=== PATIENT | female | born 1995 | race Caucasian/White ===

== ENCOUNTER 2017-07-24 07:03 | Inpatient (IN) | payer OTHER ==
[~2017-07-24 07:03] MED LIST: Buffered Lidocaine 0.9% SYRIN* 5 ML/SYR SYRINGE INTRADERM ONE
[2017-07-24] MEDS ORDERED: Sodium Citrate/Citric Acid* 15 ML UDC PO ONE (07:30)
[2017-07-24] MEDS ORDERED: Phenylephrine IV* 40 MCG/ML 10 ML SYRINGE ONE (08:07)
[2017-07-24] MEDS ORDERED: ceFOXitin 2 GM IVPREMIX* 2 GM/50 ML BAG ONE (08:14)
[2017-07-24] MEDS ORDERED: OXYTOCIN* 10 UNITS/ML 1 ML VIAL ONE (09:55)
[2017-07-24] MEDS ORDERED: Morphine PF AMP (0.5MG/ML)* 5 MG/10 ML AMP ONE (09:55)
[2017-07-24] MEDS ORDERED: Dexamethasone IV* 4 MG/ML 1 ML (4 MG) ONE (09:55)
[2017-07-24] MEDS ORDERED: Ondansetron INJ* 2 MG/ML VIAL ONE (09:55)
[2017-07-24] MEDS ORDERED: oxyCODONE TAB* 5 MG TAB PO PRN ×2 (10:35→10:37)
[2017-07-24] MEDS ORDERED: Naloxone* 0.4 MG/ML 1 ML VIAL IV PRN ×2 (10:35→10:37)
[2017-07-24] MEDS ORDERED: Nalbuphine* 20 MG/ML 1 ML VIAL IV PRN ×2 (10:35→10:37)
[2017-07-24] MEDS ORDERED: Acetaminophen IV 1GM/100ML * 1,000 MG/100 ML VIAL IVPB ONE (10:35)
[2017-07-24] MEDS ORDERED: Ketorolac INJ* 30 MG/ML 1 ML VIAL IV PRN (10:35)
[2017-07-24] MEDS ORDERED: fentaNYL* 50 MCG/ML 2 ML VIAL (100 MCG VIAL) IV PRN (10:35)
[2017-07-24] MEDS ORDERED: PROCHLORPERAZINE INJ 5 MG/ML 2 ML VIAL IV PRN ×2 (10:35→10:37)
[2017-07-24] MEDS ORDERED: Scopolamine PATCH Remove* 1 NOTE MISC PATCH OFF PRN (10:37)
[2017-07-24] MEDS ORDERED: Ondansetron INJ* 2 MG/ML VIAL IV PRN (10:37)
[2017-07-24] MEDS ORDERED: Scopolamine 1.5 mg* PATCH TRANSDERM PRN (10:37)
[2017-07-24] MEDS ORDERED: Glycerin ADULT SUPP PR PRN (11:05)
[2017-07-24] MEDS ORDERED: Dibucaine 1% 28.35 GM TUBE PR PRN (11:05)
[2017-07-24] MEDS ORDERED: Witch Hazel PAD* JAR TOPICAL PRN (11:05)
[2017-07-24] MEDS ORDERED: Oxytocin in LR* 20 UNITS/1,000 ML BAG IVPB SCH (12:00)
[2017-07-24] MEDS: Simethicone TAB* 80 MG TAB.CHEW PO SCH ×3 (14:48→21:36)
[2017-07-24] MEDS: Docusate CAP* 100 MG PO SCH ×2 (14:48→21:36)
[2017-07-24] MEDS: Ketorolac INJ* 30 MG/ML 1 ML VIAL IV PRN (19:45)
[2017-07-24] MEDS: Acetaminophen TAB* 325 MG PO SCH ×2 (21:28→21:36)
[2017-07-25] MEDS: Ketorolac INJ* 30 MG/ML 1 ML VIAL IV PRN ×2 (01:50→08:25)
--- NOTE | 2017-07-25 02:15 | OP ---
OPERATIVE REPORT: DATE OF OPERATION: 07/24/17 DATE OF : 89 SURGEON: Anselmo Fuller MD SEEING EYE DOG TEACHER: Adelaide Cooper CNM PRE-OP DIAGNOSIS: Failed version.breech presenting/ 39 weeks POST-OP DIAGNOSIS: Failed version./ breech presentation. 39 weeks OPERATIVE PROCEDURE: Low-transverse section. INDICATIONS: This is a 22-year-old 2, para 1 with 2 attempts at version , one approximately a week ago and one the day of surgery, both of which were failed attempts. Baby tolerated well and had a reactive NST afterwards. FINDINGS: Include a viable female with Apgars 9 and 9 and weight was 6 pounds 5 ounces. Normal-appearing uterus, fallopian tubes, and ovaries. ESTIMATED BLOOD LOSS: 600 cc. DESCRIPTION OF PROCEDURE: The patient identified and procedure identified as a low- transverse section. The patient was taken to the operating room and prepped and draped in the usual fashion in the left lateral recumbent position under spinal anesthesia. A Pfannenstiel incision was made in the abdomen and carried down through fat, fascia, and peritoneum. A transverse incision was made in the lower uterine segment and extended laterally using blunt dissection. The above was delivered through the incision using the breech extraction method without difficulty. Cord was doubly clamped and cut and handed to the awaiting director channel. Cord blood was obtained. Placenta was delivered spontaneously. The uterus was wiped out with a wet lap sponge. No abnormalities were seen on the uterus. The uterus was then closed using 0 Polysorb in a running fashion. Second layer was used to imbricate the first layer. Good hemostasis was verified and good hemostasis achieved with 0 and 3-0 Polysorb [id number] sutures. The uterus was placed back in the abdominal cavity. The gutters were wiped out with a wet lap sponge. The peritoneum was then closed using 3-0 Polysorb in a running fashion. Good hemostasis achieved in the subrectus layers. The fascia was closed using 0 Polysorb in a running fashion. Copious irrigation was utilized and suctioned out and the skin was closed with 4-0 Monocryl in a subcuticular fashion. All sponge and instrument counts were correct and the patient returned to the recovery room in stable condition. [id number]/[facility] #: [id number] [facility]
[2017-07-25] MEDS: Acetaminophen TAB* 325 MG PO SCH (04:41)
[2017-07-25] MEDS: oxyCODONE/Acetamin 5/325 MG* TAB PO PRN ×5 (04:42→21:26)
[2017-07-25 06:49] LABS: ABS Basophils 0 10^3/ul (0-0.2); ABS Eosinophils 0 10^3/ul (0-0.6); ABS Lymphocytes 3.1 10^3/ul (1.0-4.8); ABS Monocytes 1.3 10^3/ul (0-0.8); ABS Neutrophils 14.8 10^3/ul (1.5-7.7); ABS Nucleated RBC 0 10^3/ul; Eosinophil % 0.2 % (0-6); Hematocrit 26 % (35-47); Hemoglobin 8.9 g/dl (12.0-16.0); Lymphocyte % 16.1 % (25-47); Mean Corpuscular HGB Conc 34 g/dl (31-36); Mean Corpuscular Hemoglobin 32 pg (27-31); Mean Corpuscular Volume 92 fL (80-97); Mean Platelet Volume 11 um3 (7.4-10.4); Nucleated Red Blood Cells % 0; Platelet Count 97 10^3/ul (150-450); Red Blood Count 2.82 10^6/ul (4.0-5.4); Red Cell Distribution Width 14 % (10.5-15); White Blood Count 19.3 10^3/ul (3.5-10.8)
[2017-07-25] MEDS ORDERED: RANITIDINE HCL 75 MG PO SCH (09:00)
[2017-07-25] MEDS: Docusate CAP* 100 MG PO SCH ×3 (09:07→21:25)
[2017-07-25] MEDS: Simethicone TAB* 80 MG TAB.CHEW PO SCH ×4 (09:09→21:26)
[2017-07-25] MEDS: Ferrous Gluconate TAB* 324 MG TAB PO SCH ×2 (09:09→21:26)
[2017-07-25] MEDS ORDERED: Acetaminophen TAB* 325 MG PO PRN (11:00)
[2017-07-25] MEDS: Ibuprofen TAB* 600 MG PO PRN ×2 (13:44→21:26)
[2017-07-25] MEDS ORDERED: Zolpidem TAB* 5 MG PO PRN (21:00)
[2017-07-25] MEDS ORDERED: Nicotine Inhaler* 10 MG AMP INH PRN (23:18)
[2017-07-25] MEDS ORDERED: Mouth Piece, Nicotine* 1 EACH CARTRIDGE INH PRN (23:19)
[2017-07-26] MEDS: oxyCODONE/Acetamin 5/325 MG* TAB PO PRN ×4 (01:16→19:54)
[2017-07-26] MEDS: Ibuprofen TAB* 600 MG PO PRN ×4 (03:26→20:59)
[2017-07-26] MEDS: Docusate CAP* 100 MG PO SCH ×3 (09:18→19:37)
[2017-07-26] MEDS: Ferrous Gluconate TAB* 324 MG TAB PO SCH ×2 (09:18→19:36)
[2017-07-26] MEDS: Simethicone TAB* 80 MG TAB.CHEW PO SCH ×3 (09:19→19:37)
[2017-07-27] MEDS: oxyCODONE/Acetamin 5/325 MG* TAB PO PRN ×2 (01:58→06:20)
[2017-07-27] MEDS: Ibuprofen TAB* 600 MG PO PRN (06:19)
[2017-07-27 07:42] VITALS: BP 110/78
[2017-07-27] MEDS: Ferrous Gluconate TAB* 324 MG TAB PO SCH (09:27)
[2017-07-27] MEDS: Docusate CAP* 100 MG PO SCH (09:27)
== END 2017-07-27 10:30 | disposition home or self-care (01) | DRG 540 ==
LOC: MCHOB 07:03
PROVIDERS: ADMIT Obstetrics & Gynecology; ATTEND Obstetrics & Gynecology
PROC: 10D00Z1 Extraction of Products of Conception, Low, Open Approach (ICD-10-PCS; principal; 2017-07-24 07:45)
DX: O32.1XX0 Maternal care for breech presentation, not applicable or unspecified (principal); D64.9 Anemia, unspecified; O99.334 Smoking (tobacco) complicating childbirth; F17.210 Nicotine dependence, cigarettes, uncomplicated; O90.81 Anemia of the puerperium; Z3A.39 39 weeks gestation of pregnancy; Z37.0 Single live birth
CPT/HCPCS: 36415; 59412; 85025; A9270-GY; J0694; J1100; J1885; J2405; J2590

== ENCOUNTER 2017-10-21 18:16 | Emergency (ER) | payer OTHER ==
[2017-10-21 18:39] VITALS: BP 115/59
--- NOTE | 2017-10-21 19:15 | UC ---
Complaint Female HPI - HPI Summary HPI Summary: 22 yo WF h/o pyelonephritis c/o recurrent pyelonephritis sx of right LBP, changes in urine color and foul smelling urine, denies f/c, started with dysuria 2 weeks ago - History Of Current Complaint Chief Complaint: UCGU Stated Complaint: BACK PAIN Time Seen by Provider: 10/21/17 18:58 Hx Obtained From: Patient Hx Last Menstrual Period: NOW Onset/Duration: Lasting Days Timing: Constant Severity Initially: Moderate Severity Currently: Moderate Pain Intensity: 3 - Allergies/Home Medications Allergies/Adverse Reactions: Allergies Allergy/AdvReac Type Severity Reaction Status Date / Time Penicillins Allergy Severe Hives Verified 10/21/17 18:40 Home Medications: Home Medications Acetaminophen TAB* [Tylenol TAB*] 650 mg PO PRN 10/21/17 [History] PMH/Surg Hx/FS Hx/Imm Hx - Additional Past Medical History Additional PMH: pyelonephritis Previously Healthy: Yes - Surgical History Surgical History: Yes Surgery Procedure, Year, and Place: - Social History Alcohol Use: None Substance Use Type: None Smoking Status (MU): Current Every Day Smoker Type: Cigarettes Amount Used/How Often: 6 CIG/DAY Length of Time of Smoking/Using Tobacco: 4 years Have You Smoked in the Last Year: Yes Household Exposure Type: Cigarettes - Immunization History Most Recent Influenza Vaccination: 03/2017 Most Recent Tetanus Shot: 03/21/15 Most Recent Pneumonia Vaccination: never Vaccination Up to Date: Yes Review of Systems Constitutional: Negative Skin: Negative Eyes: Negative ENT: Negative Respiratory: Negative Cardiovascular: Negative Gastrointestinal: Other - right LBP Genitourinary: Negative Motor: Negative Neurovascular: Negative Musculoskeletal: Negative Neurological: Negative Psychological: Negative Is Patient Immunocompromised?: Yes All Other Systems Reviewed And Are Negative: Yes Physical Exam Triage Information Reviewed: Yes Appearance: No Pain Distress Vital Signs: Initial Vital Signs Temp 37.3 C 10/21/17 18:33 Pulse 91 10/21/17 18:33 Resp 16 10/21/17 18:33 BP 115/59 10/21/17 18:33 Pulse Ox 100 10/21/17 18:33 Eye Exam: Normal ENT Exam: Normal Dental Exam: Normal Neck exam: Normal Respiratory Exam: Normal Cardiovascular Exam: Normal Abdomen Description: Positive: Soft, CVA Tenderness (R) Neurological Exam: Normal Skin Exam: Normal Complaint Female Dx - Course Course Of Treatment: positive UA with CVE tenderness - Differential Dx/Diagnosis Provider Diagnoses: right pyelonephritis Discharge - Sign-Out/Discharge Documenting (check all that apply): Discharge/Admit/Transfer - Discharge Plan Condition: Stable Disposition: HOME Prescriptions: Sulfamethox/Trimethoprim DS* [Bactrim DS 800/160 TAB*] 1 tab PO BID 10 Days #20 tab Patient Education Materials: Kidney Infection (ED), Urinary Tract Infection in Women (ED) Referrals: Jesse Diaz MD [Primary Care Provider] - - Billing Disposition and Condition Condition: STABLE Disposition: HOME
== END 2017-10-21 19:15 | disposition home or self-care (01) ==
LOC: UCEAST 18:16
DX: N12 Tubulo-interstitial nephritis, not specified as acute or chronic (principal); Z88.0 Allergy status to penicillin; F17.210 Nicotine dependence, cigarettes, uncomplicated
CPT/HCPCS: 81003; 87077; 87086; 87186; 99212; G0463

== ENCOUNTER 2021-01-26 08:06 | Inpatient (IN) ==
[2021-01-26 09:30] LABS: Hematocrit 32 % (35-47); Hemoglobin 10.2 g/dL (12.0-16.0); Mean Corpuscular HGB Conc 32 g/dL (31-36); Mean Corpuscular Hemoglobin 27 pg (27-31); Mean Corpuscular Volume 85 fL (80-97); Mean Platelet Volume 9.8 fL (7.4-10.4); Platelet Count 148 10^3/uL (150-450); Red Blood Count 3.75 10^6 /uL (3.70-4.87); Red Cell Distribution Width 15 % (10-15); White Blood Count 13.2 10^3/uL (3.5-10.8)
[2021-01-26 09:49] LABS: Urine Benzodiazepine Screen None Detected (None Detect); Urine Cannabinoids Screen Presumptive Positive (None Detect); Urine Opiates Screen None Detected (None Detect)
[2021-01-26] MEDS: Lactated Ringers 1000 ml BAG 1,000 ML IV SCH ×2 (10:29→14:23)
[2021-01-26] MEDS ORDERED: Lactated Ringers 1000 ml BAG 1,000 ML IV ONE ×2 (10:34→11:38)
[2021-01-26] MEDS ORDERED: Buffered Lidocaine 1% SYRIN 1 ml INTRADERM ONE (10:34)
[2021-01-26] MEDS ORDERED: OBEPIDURAL 250 ML EPIDURAL ONE (10:57)
[2021-01-26] MEDS ORDERED: Phenylephrine 40 mcg/mL 10mL (400mcg) SYRINGE IV PUSH PRN ×2 (11:38)
[2021-01-26] MEDS ORDERED: Sodium Citrate/Citric Acid LIQ 15 ML UDC PO PRN (11:38)
[2021-01-26] MEDS ORDERED: OBEPIDURAL 250 ML EPIDURAL SCH (12:00)
[2021-01-26] MEDS ORDERED: Lactated Ringers 1000 ml BAG 1,000 ML IV SCH ×2 (12:00→17:00)
[2021-01-26 12:15] LABS: Urine Appearance Cloudy; Urine Bilirubin Negative (Negative); Urine Blood 1+ (Negative); Urine Color Yellow; Urine Glucose Negative (Negative); Urine Ketones Negative (Negative); Urine Nitrite Positive (Negative); Urine Protein Negative (Negative); Urine Urobilinogen Negative (Negative)
[2021-01-26 12:26] LABS: Urine Bacteria Absent (Absent); Urine Red Blood Cell Trace(0-2/hpf) (Absent); Urine White Blood Cell Trace(0-5/hpf) (Absent)
[2021-01-26 12:32] LABS: Urine Benzodiazepine Screen None Detected (None Detect); Urine Cannabinoids Screen Presumptive Positive (None Detect); Urine Opiates Screen None Detected (None Detect)
[2021-01-26] MEDS ORDERED: Oxytocin in LR 20 UNITS/1,000 ML BAG IVPB SCH (14:00)
[2021-01-26] MEDS ORDERED: Dibucaine 1% OINT 28.35 GM TUBE PR PRN (16:11)
[2021-01-26] MEDS ORDERED: Glycerin ADULT 2.4 gm SUPP PR PRN (16:11)
[2021-01-26] MEDS ORDERED: Witch Hazel PAD JAR TOPICAL PRN (16:11)
[2021-01-27 09:23] LABS: ABS Eosinophils 0.1 10^3/ul (0-0.6); ABS Monocytes 0.8 10^3/ul (0-0.8); ABS Neutrophils 11.1 10^3/ul (1.5-7.7); Eosinophil % 0.5 %; Hematocrit 30 % (35-47); Hemoglobin 9.6 g/dL (12.0-16.0); Lymphocyte % 14.1 %; Mean Corpuscular HGB Conc 32 g/dL (31-36); Mean Corpuscular Hemoglobin 28 pg (27-31); Mean Corpuscular Volume 85 fL (80-97); Mean Platelet Volume 9.5 fL (7.4-10.4); Platelet Count 152 10^3/uL (150-450); Red Blood Count 3.49 10^6 /uL (3.70-4.87); Red Cell Distribution Width 15 % (10-15); White Blood Count 13.9 10^3/uL (3.5-10.8)
[2021-01-27 15:54] VITALS: BP 117/65
== END 2021-01-27 17:00 | disposition home or self-care (01) | DRG 560 ==
LOC: MCHOBOUT 08:06 → MCHOB 09:24
PROVIDERS: ADMIT Obstetrics & Gynecology; ATTEND Obstetrics & Gynecology